=== PATIENT | female | born 1980 | race Caucasian/White ===

== ENCOUNTER 2016-10-22 16:00 | Emergency (ER) | payer OTHER ==
[~2016-10-22] VITALS: Ht 162.6 cm; Wt 67.3 kg
[2016-10-22 16:06] VITALS: TEMP 36.9; Ht 162.6 cm; Wt 67.3 kg
[2016-10-22] MEDS ORDERED: SODIUM CHLORIDE 0.9% 1000ML 1,000 ML IV STA ×2 (16:43→16:49)
[2016-10-22] MEDS ORDERED: ONDANSETRON INJ 2 MG/ML 2 ML VIAL IV STA (16:43)
[2016-10-22] MEDS ORDERED: METOCLOPRAMIDE HCL INJ 5 MG/ML 2 ML VIAL IV SCH (16:45)
[2016-10-22] MEDS ORDERED: ONDA4TAB10 SL (16:50)
--- NOTE | 2016-10-22 16:50 | EMERGENCY ROOM VISIT NOTE ---
History Report prepared by Jane: Tanja Chen Under the Supervision of: Dr. Yokasta Silverman M.D. First contact with patient: 16:42 Chief Complaint: ILLNESS Stated Complaint: HEADACHE, VOMITING, DIARRHEA, TIRED History of Present Illness The patient is a 36 year old female who presents to the Emergency Room with complaints of constant illness symptoms beginning last night. She notes that she ordered chicken from [employer] and a few hours later her symptoms began. The patient has been experiencing a headache, nausea, vomiting and diarrhea episodes, fatigue and mild abdominal pain. Source of History: patient Onset: last night Position: other (global) Quality: other (illness symptoms) Timing: constant Associated Symptoms: + abdominal pain (mild), + diarrhea, + fatigue, + headache, + nausea, + vomiting Review of Systems See HPI for pertinent positives & negatives. A total of 10 systems reviewed and were otherwise negative. Past Medical & Surgical Surgical Problems: (1) H/O: hysterectomy Family History Patient reports no known family medical history. Social History Smoking Status: Never Smoker Smokeless Tobacco Use: No Alcohol Use: none Housing Status: lives with family Occupation Status: employed Current/Historical Medications Scheduled Control Pills ( Control Pills), 1 TAB PO DAILY Ondasetron Odt (Zofran Odt), 4 MG SL Q6H Sertraline (Zoloft), 50 MG PO DAILY Trazodone Hcl (Trazodone), 100 MG PO HS Allergies Coded Allergies: No Known Allergies (Verified , 10/22/16) Physical Exam Vital Signs Date Time Temp Pulse Resp B/P Pulse Ox O2 Delivery O2 Flow Rate FiO2 10/22/16 20:24 72 16 111/67 98 10/22/16 19:02 80 16 120/71 97 Room Air 10/22/16 17:09 79 17 122/81 95 Room Air 10/22/16 16:06 36.9 119 18 136/79 96 Room Air Physical Exam CONSTITUTIONAL: Mild distress. HEENT: No icterus, moist mucous membranes NECK: No meningismus, trachea is midline. CARDIOVASCULAR: Regular rate, normal perfusion RESPIRATORY: Unlabored breathing. Clear to auscultation. GASTROINTESTINAL: Non-tender. Abdomen benign. GENITOURINARY: No flank tenderness MUSCULOSKELETAL: Full range of motion NEUROLOGIC: No acute gross focal deficits. PSYCHIATRIC: Normal affect SKIN: Normal for ethnicity. Medical Decision & Procedures Laboratory Results 10/22/16 16:51 Red Blood Count 4.76, Mean Corpuscular Volume 86.3, Mean Corpuscular Hemoglobin 30.3, Mean Corpuscular Hemoglobin Concent 35.0, Mean Platelet Volume 10.5, Neutrophils (%) (Auto) 91.5, Lymphocytes (%) (Auto) 3.0, Monocytes (%) (Auto) 5.0, Eosinophils (%) (Auto) 0.1, Basophils (%) (Auto) 0.1, Neutrophils # (Auto) 9.62, Lymphocytes # (Auto) 0.31, Monocytes # (Auto) 0.52, Eosinophils # (Auto) 0.01, Basophils # (Auto) 0.01 10/22/16 16:51 Test 10/22/16 16:51 White Blood Count 10.50 K/uL (4.8-10.8) Red Blood Count 4.76 M/uL (4.2-5.4) Hemoglobin 14.4 g/dL (12.0-16.0) Hematocrit 41.1 % (37-47) Mean Corpuscular Volume 86.3 fL (80-100) Mean Corpuscular Hemoglobin 30.3 pg (25-34) Mean Corpuscular Hemoglobin Concent 35.0 g/dl (32-36) Platelet Count 254 K/uL (130-400) Mean Platelet Volume 10.5 fL (7.4-10.4) Neutrophils (%) (Auto) 91.5 % Lymphocytes (%) (Auto) 3.0 % Monocytes (%) (Auto) 5.0 % Eosinophils (%) (Auto) 0.1 % Basophils (%) (Auto) 0.1 % Neutrophils # (Auto) 9.62 K/uL (1.4-6.5) Lymphocytes # (Auto) 0.31 K/uL (1.2-3.4) Monocytes # (Auto) 0.52 K/uL (0.11-0.59) Eosinophils # (Auto) 0.01 K/uL (0-0.5) Basophils # (Auto) 0.01 K/uL (0-0.2) RDW Standard Deviation 40.2 fL (36.4-46.3) RDW Coefficient of Variation 12.6 % (11.5-14.5) Immature Granulocyte % (Auto) 0.3 % Immature Granulocyte # (Auto) 0.03 K/uL (0.00-0.02) Anion Gap 14.0 mmol/L (3-11) Est Creatinine Clear Calc Drug Dose 73.4 ml/min Estimated GFR () 83.9 Estimated GFR (Non- 72.4 BUN/Creatinine Ratio 21.3 (10-20) Calcium Level 8.8 mg/dl (8.5-10.1) Total Bilirubin 0.4 mg/dl (0.2-1) Direct Bilirubin < 0.1 mg/dl (0-0.2) Aspartate Amino Transf (AST/SGOT) 15 U/L (15-37) Alanine Aminotransferase (ALT/SGPT) 18 U/L (12-78) Alkaline Phosphatase 59 U/L (45-117) Total Protein 8.3 gm/dl (6.4-8.2) Albumin 4.0 gm/dl (3.4-5.0) Lipase 166 U/L (73-393) Labs reviewed by ED physician. Medications Administered Medications (Trade) Dose Ordered Sig/Deanne Route Start Time Stop Time Status Last Admin Dose Admin Ondansetron HCl 4 mg 4 mg NOW STAT IV 10/22/16 16:43 10/22/16 16:45 DC 10/22/16 17:08 4 MG Sodium Chloride (Nss 1000ml) 1,000 ml @ 0 mls/hr Q0M STAT IV 10/22/16 16:43 10/22/16 16:45 DC 10/22/16 17:03 999 MLS/HR Metoclopramide HCl 10 mg 10 mg Q6H IV 10/22/16 16:45 10/22/16 20:52 DC 10/22/16 17:08 10 MG Sodium Chloride (Nss 1000ml) 1,000 ml @ 0 mls/hr Q0M STAT IV 10/22/16 16:49 10/22/16 16:50 DC 10/22/16 17:03 999 MLS/HR ED Course 1648: Past medical records reviewed. The patient was evaluated in room C11. A complete history and physical examination was performed. 1643: Sodium Chloride 1,000 ml @ 0 mls/hr Wide Open IV, Zofran Inj 4 mg IV, Reglan Inj 10 mg IV. 1649: Sodium Chloride 1,000 ml @ 0 mls/hr Wide Open IV. 2020: Upon reexamination the patient is hemodynamically stable. I discussed results and treatment plan with the patient. She verbalizes agreement and understanding. The patient is ready for discharge. Medical Decision Differential diagnoses include but are not limited to; gastric enteritis, food poisoning. 36-year-old presents to the emergency department for vomiting and diarrhea and crampy abdominal pain after eating waning since yesterday. She is concerned about food poisoning. Labs normal. Hydrated with normal saline solution and tolerated by mouth after Zofran. Appeared well on reexamination prior to discharge. Given oral dissolvable tablets written. Impression Primary Impression: Gastroenteritis Scribe Attestation The scribe's documentation has been prepared under my direction and personally reviewed by me in its entirety. I confirm that the note above accurately reflects all work, treatment, procedures, and medical decision making performed by me. Departure Information Dispostion Home / Self-Care Prescriptions Ondasetron Odt (ZOFRAN ODT) 4 Mg Tab 4 MG SL Q6H for Nausea, #20 TAB Prov: Yokasta Silverman MD 10/22/16 Referrals Vanessa Lucero D.O. (PCP) Forms HOME CARE DOCUMENTATION FORM, IMPORTANT VISIT INFORMATION, WORK / SCHOOL INSTRUCTIONS Patient Instructions ED Gastroenteritis Viral, My [facility]
[2016-10-22 17:25] LABS: BASO % 0.1 %; BASO ABS # 0.01 K/uL (0-0.2); COMPLETE YES; EOS % 0.1 %; HEMATOCRIT 41.1 % (37-47); IG% 0.3 %; LYMPH ABS # 0.31 K/uL (1.2-3.4); MEAN CELL VOLUME 86.3 fL (80-100); MEAN CORPUSCULAR HEMOGLOBIN 30.3 pg (25-34); MEAN PLATELET VOLUME 10.5 fL (7.4-10.4); NEUT % 91.5 %; PLATELET COUNT 254 K/uL (130-400); RED BLOOD COUNT 4.76 M/uL (4.2-5.4)
[2016-10-22 17:44] LABS: ALT/SGPT 18 U/L (12-78); BLOOD UREA NITROGEN 21 mg/dl (7-18); BUN/CREATININE RATIO 21.3 (10-20); CALCIUM 8.8 mg/dl (8.5-10.1); CARBON DIOXIDE 23 mmol/L (21-32); CHLORIDE 102 mmol/L (98-107); GLUCOSE 112 mg/dl (70-99); POTASSIUM 3.7 mmol/L (3.5-5.1); SODIUM 139 mmol/L (136-145)
[2016-10-22 17:47] LABS: ALKALINE PHOSPHATASE 59 U/L (45-117); AST/SGOT 15 U/L (15-37)
[2016-10-22] MEDS ORDERED: TRAZ100T29 PO (18:00)
[2016-10-22] MEDS ORDERED: SERT50TA PO (18:00)
[2016-10-22] MEDS ORDERED: BCPILLS PO (18:00)
[2016-10-22 20:24] VITALS: BP 111/67; PULSE 72; O2SAT 98
== END 2016-10-22 20:27 | disposition home or self-care (01) ==
LOC: C.EDB 16:01 → C.EDC 20:27
DX: K52.9 Noninfective gastroenteritis and colitis, unspecified (principal)